=== PATIENT | male | born 1995 | race Caucasian/White ===

== ENCOUNTER 2024-11-06 11:03 | Emergency (ER) | payer SELFPAY ==
--- NOTE | ~2024-11-06 | XR_ITS ---
XR finger 2nd RT min 2V 11/06/2024 12:05 INDICATION: Right second finger pain PROCEDURE: 3 views right second finger COMPARISON: No prior studies for comparison. FINDINGS: Fracture, dislocation or subluxation is not identified. The soft tissues appear within norm al limits. No foreign bodies are identified. IMPRESSION: 1: NO ACUTE BONE OR JOINT ABNORMALITY IDENTIFIED. Reviewed, dictated and finalized at location A.
[2024-11-06 11:15] VITALS: BP 114/77; PULSE 87; RESP 16; TEMP 36.6; O2SAT 99
--- OUTSIDE RECORDS SUMMARY | 2024-11-06 12:45 | XMS_ITS | Clinical Summary ---
Author Organization [facility] Address [address] [place] [address] Care Team Providers Care Business Performance Manager Name Role Phone None, Physician Primary Care Provider [phone] Allergies Active Allergy Reactions Criticality Noted Date Comments [place] 12/17/2022 Medications lidocaine 4 % transdermal patch Apply 1 patch onto the skin daily for 5 days. 5 patch 12/17/2022 Active Social History Tobacco Use Types Packs/Day Years Used Date Smoking Tobacco: Never Smokeless Tobacco: Current Chew Tobacco Cessation:Ready to Q uit: Yes; Counseling Given: No Alcohol Use Standard Drinks/Week Comments Never 0 (1 standard drink = 0.6 oz pur e alcohol) Sex and Gender Information Value Date Recorded Sex Assigned at Male 12/17/2022 11:46 AM EDT Legal Sex Male 10:57 AM EDT Gender Identity Not on file Sexual Orientation Not on file Last Filed Vital Signs Vital Sign Reading Time Taken Comments Blood Pressure 168/98 12/17/2022 11:02 AM EDT Pulse 88 12/17/2022 11:02 AM EDT Temperature 36.8 C (98.3 F) 12/17/2022 11:02 AM EDT Respiratory Rate 18 12/17/2022 11:02 AM EDT Oxygen Saturation 98% 12/17/2022 11:02 AM EDT Inhaled Oxygen Concentration - - Weight 83.9 kg (185 lb) 12/17/2022 11:02 AM EDT Height - - Body Mass Index - - Plan of Treatment Upcoming Encounters Date Type Department Care Team (Late st Contact Info) Description 03/10/2025 2:50 PM EDT Office Visit [facility] [address] [place] [address] Dexter Hunt MD [address] [facility] [address] [place] [address] Health Maintenance Due Date Last Done Comments Hepatitis C Screening 1993 Wellness Exam 1996 DTaP,Tdap,and Td Vaccine (1 - Tdap) 2012 Influenza Vaccine (Season Ended) 2025 Pneumococcal Vaccine: Combined Aged Out No longer eligible based on patient's age to complete this topic Insurance [employer] [place] [employer] Care Teams Business Performance Manager Relationship Specialty Start Date End Date None, Physician . PCP - General 12/17/22
[2024-11-06] MEDS: TETANUS,DIPHTHERIA,AC PERTUSSIS ADULT (0.5 ML) BOOSTRIX IM (12:56)
[2024-11-06 13:09] LABS: Basophils Percent Auto 0.5 % (0.2-1.2); Eosinophils Absolute Auto 0.2 K/mm3 (0-0.3); Eosinophils Percent Auto 3.1 % (0-4.4); Hematocrit 40.2 % (42.0-52.0); Immature Granulocyte Absolute 0.02 K/mm3 (0.00-0.031); Immature Granulocyte Percent A 0.3 % (0-0.5); Lymphocytes Absolute Auto 0.78 K/mm3 (0.9-3.2); Lymphocytes Percent Auto 10.2 % (18.3-44.2); Mean Corpuscular HGB Conc 34.8 g/dl (32-36); Mean Corpuscular Hemoglobin 29.7 pg (26-34); Mean Corpuscular Volume 85.2 fl (80-100); Mean Platelet Volume 10.7 fl (7.4-10.4); Monocytes Absolute Auto 0.4 K/mm3 (0.1-0.6); Neutrophils Absolute Auto 6.2 K/mm3 (1.3-6.7); Neutrophils Percent Auto 80.9 % (45.5-73.1); Platelet Count Result 219 k/mm3 (150-375); Red Blood Count 4.72 M/mm3 (4.6-6.20); Red Cell Distribution Width 12.9 % (11.5-14.5); White Blood Count 7.6 K/mm3 (4.5-10.0)
--- OUTSIDE RECORDS SUMMARY | 2024-11-06 13:11 | XMS_ITS | Clinical Summary ---
Author Organization [facility] Address [address] [place] [address] Care Team Providers Care Ski Lift Mechanic Name Role Phone None, Physician Primary Care Provider [phone] Allergies Active Allergy Reactions Criticality Noted Date [...] Description 03/10/2025 2:50 PM EDT Office Visit [facility] [address] [place] [address] Dexter Hunt MD [address] [facility] [address] [place] [address] Health Maintenance Due Date Last Done Comments Hepatitis C Screening 1993 Wellness Exam 1996 DTaP,Tdap,and Td Vaccine (1 - Tdap) 2012 Influenza Vaccine (Season Ended) 2025 Pneumococcal Vaccine: Combined Aged Out No longer eligible based on patient's age to complete this topic Insurance [employer] [place] [employer] Care Teams Ski Lift Mechanic Relationship Specialty Start Date End Date None, Physician . PCP - General 12/17/22
[2024-11-06 13:20] LABS: Alanine Aminotransferase 15 U/L (6-50); Albumin Level 4.2 g/dL (3.5-5.1); Alkaline Phosphatase 61 U/L (38-126); Anion Gap 8 mmol/L (4-12); Aspartate Amino Transferase 17 U/L (17-59); Bilirubin,Total 1.7 mg/dL (0.2-1.3); Blood Urea Nitrogen 19 mg/dL (9-20); Calcium 8.7 mg/dL (8.4-10.2); Carbon Dioxide 29 mmol/L (22-30); Chloride 103 mmol/L (98-107); Estimated CRCL calculation 101 ml/min; Estimated Glomerular Filt Rate > 60; Glucose 107 mg/dL (65-110); Potassium 3.9 mmol/L (3.4-5.0); Sodium 140 mmol/L (137-145)
[2024-11-06 13:38] LABS: Barbiturate Screen Urine Negative (Negative); Benzodiazepines Screen Urine Negative (Negative)
[2024-11-06 13:39] LABS: Cannabinoid Screen Urine Positive (Negative); Cocaine Screen Urine Positive (Negative); Methadone Screen Urine Negative (Negative); Opiate Screen Urine Negative (Negative); Phencyclidine Screen Urine Negative (Negative)
[2024-11-06 13:43] LABS: Add Urine Microscopic? YES; Appearance Urine Clear (Clear); Bacteria Urine None Seen /hpf; Bilirubin Urine Negative (Negative); Blood Urine Negative (Negative); Color Urine Yellow (Yellow); Glucose Urine UA Negative (Negative); Ketones Urine Trace mg/dL (Negative); Leukocyte Esterase Ur Trace LEU/UL (Negative); Mucus Urine Present /lpf; Need Manual Microscopic Reviewed; Nitrate Urine Negative (Negative); Non Pathogenic Casts 0-2; Protein Urine Negative (Negative); RBC Urine 0-2 /hpf (0-2); Specific Grav Ur 1.026 (1.001-1.035); Squamous Epithelial Cell Urine Occasional /hpf (Few); WBC Urine 0-5 /hpf (0-3); pH Urine 5.5 (5.0-9.0)
[2024-11-06 13:47] LABS: Influenza A QL RT-PCR Negative (Negative); Influenza B QL RT-PCR Negative (Negative); RSV RNA, RT-PCR Negative (Negative); SARS-CoV-2 RNA PCR Negative (Negative)
--- NOTE | 2024-11-06 14:07 | ED_ITS ---
HPI - General Adult General Chief complaint: Extremity Injury, Upper Stated complaint: smashed finger Time Seen by Provider: 11/06/24 11:23 Source: patient Mode of arrival: ambulatory Limitations: no limitations History of Present Illness HPI narrative: Patient is a 29-year-old male who presents the ED with report of fatigue and right 2nd digit injury. Patient reports he has been feeling fatigued over the last couple of days. States he just feels like he has no energy, has been sleeping more than usual. Denies any other significant complaints. Reports slight intermittent dizziness, intermittent nausea, denies these symptoms currently. Denies headache, chest pain, focal numbness or weakness, cough, congestion, vomiting. Patient reports on his way here he accidentally slammed his R 2nd digit in his car door. Sustained an abrasion to finger. Tetanus unknown. Denies numbness. Related Data Allergies Allergy/AdvReac Type Severity Reaction Status Date / Time No Known Allergies Allergy Verified 11/06/24 11:03 Review of Systems 2 Review of Systems: All systems reviewed & are unremarkable except as noted in HPI. All systems reviewed & are unremarkable except as noted in HPI and below Exam 2 Narrative: GENERAL: Well appearing, well-nourished, non-toxic, in no acute distress. HEAD: Normocephalic, atraumatic. RESPIRATORY: Airway patent, respirations nonlabored. Clear to auscultation bilaterally, no rales, rhonchi, wheezing. CARDIOVASCULAR: Regular rate and rhythm without murmurs, rubs, or gallops. MUSCULOSKELETAL: Moves all extremities. No gross deformities. Superficial abrasion/avulsion to R 2nd digit lateral distal finger with contusion, nail intact, no active bleeding. No deeper lacerations. Sensation intact. Capillary refill intact. SKIN: Warm, dry, normal color. NEURO: A&O X3. Speech clear. Cranial nerves II-XII grossly intact. Steady gait. No ataxic movements. No focal deficits. PSYCHIATRIC: Appropriate mood and affect. Normal interaction. Course Vital Signs Vital signs: Vital Signs Temperature 98 F 11/06/24 11:15 Pulse Rate 87 11/06/24 11:15 Respiratory Rate 16 11/06/24 11:15 Blood Pressure 114/77 11/06/24 11:15 Pulse Oximetry 99 11/06/24 11:15 Oxygen Delivery Room Air 11/06/24 11:15 Temperature 98 F 11/06/24 11:15 Pulse Rate 87 11/06/24 11:15 Respiratory Rate 16 11/06/24 11:15 Blood Pressure 114/77 11/06/24 11:15 Pulse Oximetry 99 11/06/24 11:15 Oxygen Delivery Room Air 11/06/24 11:15 Medical Decision Making MDM Narrative Medical decision making narrative: Patient presented to ED with fatigue, injury to right 2nd digit. Vague complaints. Patient unable to describe fatigue further. Vital signs are stable. Exam is unremarkable. Neurologically intact. No focal deficits. Abrasion to digit without active bleeding. Nail intact. Does not require repair. Cleansed and bandaged. Finger x-rays negative for fracture. Tetanus updated in the ED. Basic laboratory studies are unremarkable. No significant signs of dehydration. Viral swabs are negative. UA is clear. Urine drug test resulted positive for amphetamines, cocaine, cannabinoids. Discussed these findings with patient. Advised to rest and stay hydrated at home, avoid further drug use. No signs of active drug or alcohol withdrawal at this time. Feel he is safe for discharge home at this time. Given return precautions. He agrees with plan. Discharged in stable condition. Medical Records Medical records reviewed: Yes I reviewed the external patient's medical records. Vital Signs Vital Signs: Vital Signs Temperature 98 F 11/06/24 11:15 Pulse Rate 87 11/06/24 11:15 Respiratory Rate 16 11/06/24 11:15 Blood Pressure 114/77 11/06/24 11:15 Pulse Oximetry 99 11/06/24 11:15 Oxygen Delivery Room Air 11/06/24 11:15 Temperature 98 F 11/06/24 11:15 Pulse Rate 87 11/06/24 11:15 Respiratory Rate 16 11/06/24 11:15 Blood Pressure 114/77 11/06/24 11:15 Pulse Oximetry 99 11/06/24 11:15 Oxygen Delivery Room Air 11/06/24 11:15 Lab Data Lab results reviewed: Yes I reviewed the patient's lab results. 11/06/24 12:58 11/06/24 12:58 Labs: Lab Results 11/06/24 Range/Units 12:58 WBC 7.6 (4.5-10.0) K/mm3 RBC 4.72 (4.6-6.20) M/mm3 Hgb 14.0 (14.0-18.0) g/dL Hct 40.2 L (42.0-52.0) % MCV 85.2 (80-100) fl MCH 29.7 (26-34) pg MCHC 34.8 (32-36) g/dl RDW 12.9 (11.5-14.5) % Plt Count 219 (150-375) k/mm3 MPV 10.7 H (7.4-10.4) fl Immature Gran % (Auto) 0.3 (0-0.5) % Neut % (Auto) 80.9 H (45.5-73.1) % Lymph % (Auto) 10.2 L (18.3-44.2) % [place] % (Auto) 5.0 (2.6-8.5) % Eos % (Auto) 3.1 (0-4.4) % Baso % (Auto) 0.5 (0.2-1.2) % Lymph # (Auto) 0.78 L (0.9-3.2) K/mm3 [place] # (Auto) 0.4 (0.1-0.6) K/mm3 Eos # (Auto) 0.2 (0-0.3) K/mm3 Baso # (Auto) 0.0 (0.0-0.1) K/mm3 Abs Immat Gran (auto) 0.02 (0.00-0.031) K/mm3 Absolute Neuts (auto) 6.2 (1.3-6.7) K/mm3 Absolute Nucleated RBC 0.000 (0.0-0.012) K/mm3 Nucleated RBC % 0.0 (0.0-0.2) % Sodium 140 (137-145) mmol/L Potassium 3.9 (3.4-5.0) mmol/L Chloride 103 (98-107) mmol/L Carbon Dioxide 29 (22-30) mmol/L Anion Gap 8 (4-12) mmol/L BUN 19 (9-20) mg/dL Creatinine 0.93 (0.7-1.3) mg/dL Estim Creat Clear Calc 101 ml/min Estimated GFR > 60 (59 - ) Glucose 107 (65-110) mg/dL Calcium 8.7 (8.4-10.2) mg/dL Total Bilirubin 1.7 H (0.2-1.3) mg/dL AST 17 (17-59) U/L ALT 15 (6-50) U/L Alkaline Phosphatase 61 (38-126) U/L Total Protein 7.0 (6.3-8.2) g/dL Albumin 4.2 (3.5-5.1) g/dL Urine Color Yellow (Yellow) Urine Appearance Clear (Clear) Urine pH 5.5 (5.0-9.0) Ur Specific [place] 1.026 (1.001-1.035) Urine Protein Negative (Negative) mg/dL Urine Glucose (UA) Negative (Negative) mg/dL Urine Ketones Trace H (Negative) mg/dL Ur Blood (Man) Negative (Negative) Urine Nitrate Negative (Negative) Urine Bilirubin Negative (Negative) Urine Urobilinogen 1.0 (<2.0) mg/dL Add Ur Microanalysis Reviewed Leukocyte Esterase Rfl Trace H (Negative) SERINA/UL Urine RBC 0-2 (0-2) /hpf Urine WBC 0-5 (0-3) /hpf Ur Squamous Epith Cells Occasional (Few) /hpf Urine Bacteria None seen /hpf Urine Casts 0-2 Urine Mucus Present /lpf Urine Opiates Screen Negative (Negative) Urine Methadone Screen Negative (Negative) Ur Barbiturates Screen Negative (Negative) Ur Phencyclidine Scrn Negative (Negative) Ur Amphetamine Screen Positive A (Negative) U Benzodiazepines Scrn Negative (Negative) Urine Cocaine Screen Positive A (Negative) U Cannabinoids Screen Positive A (Negative) Influenza A (RT-PCR) Negative (Negative) Influenza B (RT-PCR) Negative (Negative) RSV (RT-PCR) Negative (Negative) SARS-CoV-2 RNA (RT-PCR) Negative (Negative) Imaging Data Attestation: I personally reviewed and interpreted this imaging study as follows: Radiologist's impression: ITS Impressions Finger X-Ray 11/06/24 12:07 IMPRESSION: 1: NO ACUTE BONE OR JOINT ABNORMALITY IDENTIFIED. Discharge Plan Discharge Clinical Impression: Polysubstance abuse Fatigue Qualifiers: Fatigue type: unspecified Qualified Code(s): R53.83 - Other fatigue Abrasion of finger of right hand Qualifiers: Encounter type: initial encounter Qualified Code(s): S60.419A - Abrasion of unspecified finger, initial encounter Patient Disposition: Home, Self-Care Condition: Stable Instructions: Antibiotic Form, Finger Sprain (ED), Polysubstance Use Disorder (ED), Fatigue (ED) Additional Instructions: Your laboratory studies here were reassuring. Stay well hydrated. Get plenty of rest. Avoid any further drug or alcohol use. Follow-up with your primary care doctor for further evaluation. Return to an ED for new or worsening concerns. Utilize antibiotic ointment to finger, keep bandaged if working or using your hands. Your tetanus status was updated today. There was no fracture seen on imaging. Patient Language: Hungarian Follow-up/Referrals: UNKNOWN,DOCTOR [Primary Care Provider] - Time of Disposition: 14:13
[2024-11-06 14:23] LABS: Amphetamine Screen Urine Positive (Negative)
== END 2024-11-06 14:24 | disposition home or self-care (01) ==
PROVIDERS: Emergency Provider Physician Assistant
DX: R53.83 Other fatigue (principal); S60.410A Abrasion of right index finger, initial encounter; F19.10 Other psychoactive substance abuse, uncomplicated; Z23 Encounter for immunization; Z20.822 Contact with and (suspected) exposure to COVID-19; W23.0XXA Caught, crushed, jammed, or pinched between moving objects, initial encounter
CPT/HCPCS: 36415; 73140; 80053; 80307; 81001; 85025; 87637; 90471; 90715; 99283